=== PATIENT | female | born 1960 | race Caucasian/White ===

== ENCOUNTER 2021-08-31 10:24 | Inpatient (IN) | payer BC ==
[~2021-08-31] VITALS: Ht 167.6 cm; Wt 60.8 kg
--- NOTE | 2021-08-31 10:24 | NUR ---
PT BIB FAMILY C/O DIARRHEA, VOMITING AND BODY ACHES X 5 DAYS. PT IS AAOX3 PARSI SPEAKING ONLY, NOT IN RESPIRATORY DISTRESS, HOOKED TO DIRECTOR OF PUBLIC RELATIONS, KEPT RESTED AND COMFORTABLE. WILL CONTINUE TO MONITOR.
--- NOTE | 2021-08-31 10:41 | NUR ---
PT DAUGHTER [phone]
--- NOTE | 2021-08-31 10:50 | NUR ---
IV LINE ESTABLISHED BLOOD DRAWN AND SENT TO LAB.
--- NOTE | 2021-08-31 11:25 | NUR ---
Alice perry in [place] - 08/31/21 at 1125 by ANGELO CPVOD ANTIGEN SWAB DONE AND SENT TO THE LAB
--- NOTE | 2021-08-31 11:25 | NUR ---
COVID ANTIGEN SWAB DONE AND SENT TO THE LAB
[2021-08-31 12:08] LABS: BASOPHILS % (AUTO) 0.3 % (0.0-2.0); HEMATOCRIT 39 % (33-45); HEMOGLOBIN 13.1 g/dL (11.5-14.8); LYMPHOCYTES # (AUTO) 0.4 K/uL (0.8-4.8); LYMPHOCYTES % (AUTO) 9.4 % (20.0-44.0); MEAN CORPUSCULAR HGB CONC 34 g/dl (31.0-36.0); MEAN CORPUSCULAR VOLUME 78 fL (82-100); MONOCYTES # (AUTO) 0.2 K/uL (0.1-1.30); MONOCYTES % (AUTO) 5.2 % (2.0-12.0); NEUTROPHILS % (AUTO) 85.1 % (43.0-81.0); PLATELET COUNT (AUTO) 173 K/uL (150-450); RED BLOOD CELL COUNT(AUTO) 4.98 MIL/uL (4.0-5.2); WHITE BLOOD COUNT (AUTO) 4.7 K/uL (4.3-11.0)
[2021-08-31] MEDS ORDERED: AZIT250T13 PO (12:18)
[2021-08-31] MEDS ORDERED: HYDR200T81 PO (12:18)
[2021-08-31 12:39] LABS: CREATINE KINASE, TOTAL 265 U/L (26-192)
[2021-08-31 12:48] LABS: ALANINE AMINOTRANSFERASE 23 U/L (12-78); ALKALINE PHOSPHATASE 64 U/L (46-116); ASPARTATE AMINOTRANSFERASE 39 U/L (15-37); BILIRUBIN,TOTAL 0.3 mg/dL (0.2-1.0); CARBON DIOXIDE 25 mmol/L (21-32); CHLORIDE 98 mmol/L (98-107); CREATININE 1.2 mg/dL (0.6-1.3); GLUCOSE 108 mg/dL (74-106); POTASSIUM 3.7 mmol/L (3.5-5.1); SODIUM SERUM 133 mmol/L (136-145); TOTAL PROTEIN, SERUM 6.7 g/dL (6.4-8.2); UREA NITROGEN, BLOOD 17 mg/dL (7-18)
[2021-08-31 12:56] LABS: C-REACTIVE PROTEIN 3.4 mg/dL (0.0-0.9)
[2021-08-31] MEDS ORDERED: DEXAMETHASONE SOD PHOSPHATE 4 MG/ML VIAL ONE (13:22)
[2021-08-31] MEDS ORDERED: DEXAMETHASONE SOD PHOSPHATE 10 MG/ML VIAL IV ONE (13:30)
--- NOTE | 2021-08-31 18:27 | NUR ---
ROOM 118-2
[2021-08-31 18:28] LABS: D-DIMER 1.05 mg/L(FEU (0.17-0.50)
[2021-08-31] MEDS ORDERED: ACETAMINOPHEN 325 MG TABLET PO PRN (18:30)
[2021-08-31] MEDS ORDERED: MAGNESIUM HYDROXIDE 30 ML UDC PO PRN (18:30)
[2021-08-31] MEDS ORDERED: ENOXAPARIN SODIUM 40 MG/0.4 ML DISP.SYRIN SQ SCH (18:30)
[2021-08-31] MEDS ORDERED: ONDANSETRON HCL/PF 4 MG/2 ML VIAL IVP PRN (18:30)
[2021-08-31] MEDS ORDERED: MAG HYDROX/AL HYDROX/SIMETH 30 ML UDC PO PRN (18:30)
[2021-08-31] MEDS ORDERED: Z GUARD REMEDY 4 OZ OINT TP PRN (18:30)
[2021-08-31] MEDS ORDERED: ENOXAPARIN SODIUM 40 MG/0.4 ML DISP.SYRIN SQ ONE (18:41)
--- NOTE | 2021-08-31 20:04 | NUR ---
report given to job
[2021-08-31 20:30] VITALS: BP 102/63
--- NOTE | 2021-08-31 20:33 | NUR ---
PT TRANSPORTED TO [facility] ON [facility] PER [facility] WITHOUT INCIDENT
[2021-08-31] MEDS: AZITHROMYCIN 500 MG in IV D5W 250 ML IV SCH (21:00)
--- NOTE | 2021-08-31 21:00 | NUR ---
RN NOTES RECEIVED CARE OF PATIENT FROM ER, PATIENT TRANSFERRED IN STABLE CONDITIONS. PATIENT IS A/O X4, ABLE TO VERBALIZE NEEDS, NO PAIN OR DISCOMFORT EXPRESSED AT THIS TIME. NO SIGNIFICANT FINDINGS UPON INITIAL NURSING ASSESSMENTS. PATIENT ON 3L O2 VIA NC, O2 SAT IS 95% AT THIS TIME, NO SOB NOTED. WILL ADMINISTER SCHEDULED ANTIBIOTICS. PATIENT PLACED ON APPROPRIATE ISOLATION PRECAUTIONS. ALL SAFETY MEASURES IMPLEMENTED. WILL CONTINUE TO MONITOR.
[2021-08-31] MEDS ORDERED: CEFTRIAXONE 1 G VIAL ONE (21:21)
[2021-08-31] MEDS: CEFTRIAXONE 1 G in IV D5W 50 ML IV SCH (21:27)
[2021-08-31] MEDS ORDERED: AZITHROMYCIN 500 MG VIAL ONE (23:05)
[2021-09-01] VITALS: BP 101/46
[2021-09-01 04:00] VITALS: BP 106/67
--- NOTE | 2021-09-01 07:10 | NUR ---
RN CLOSING NOTES WILL ENDORSE CARE OF PATIENT TO DAY SHIFT NURSE WHILE PATIENT IN STABLE CONDITIONS, ASLEEP BUT WAKES UP TO NAME. PATIENT IS A/O X4, ABLE TO VERBALIZE NEEDS, NO PAIN OR DISCOMFORT EXPRESSED AT THIS TIME. NO SIGNIFICANT FINDINGS UPON ALL NURSING ASSESSMENTS. PATIENT ON 3L O2 VIA NC, O2 SAT IS 96% AT THIS TIME, NO SOB NOTED. PATIENT ON TELE MONITOR, SR NOTED WITH HR OF 83 AT THIS TIME. ALL DUE MEDS GIVEN, ALL NEEDS ATTENDED TO. PATIENT PLACED ON APPROPRIATE ISOLATION PRECAUTIONS. ALL SAFETY MEASURES IMPLEMENTED. WILL ENDORSE TO DAY SHIFT NURSE FOR TRISTA.
--- NOTE | 2021-09-01 07:27 | NUR ---
RN NOTES; PT IN BED IN SUPINE POS. PT A/OX4, SPEAKS LITTLE GREEK BUT CAN MAKE NEEDS KNOWN. PT HAS NO C/O PAIN AT THIS TIME. PT ON NC @3L SATING AT 95%. NO SOB OR DISTRESS NOTED. ALL SAFETY MEASURES RENDERED, BED LOCKED IN LOWEST POS. SIDERAILSX2 WITH CALL LIGHT WITHIN REACH. WILL CONTINUE TO MONITOR.
[2021-09-01 08:00] VITALS: BP 99/64
[2021-09-01 08:15] LABS: BASOPHILS % (AUTO) 0.1 % (0.0-2.0); EOSINOPHILS % (AUTO) 0.1 % (0.0-6.0); HEMATOCRIT 36 % (33-45); HEMOGLOBIN 12.4 g/dL (11.5-14.8); LYMPHOCYTES # (AUTO) 0.6 K/uL (0.8-4.8); MEAN CORPUSCULAR HGB CONC 34 g/dl (31.0-36.0); MEAN CORPUSCULAR VOLUME 78 fL (82-100); MONOCYTES # (AUTO) 0.4 K/uL (0.1-1.30); MONOCYTES % (AUTO) 9.8 % (2.0-12.0); PLATELET COUNT (AUTO) 199 K/uL (150-450); RED BLOOD CELL COUNT(AUTO) 4.65 MIL/uL (4.0-5.2)
[2021-09-01] MEDS: PANTOPRAZOLE 40 MG TABLET.DR PO SCH (08:20)
[2021-09-01] MEDS: DEXAMETHASONE SOD PHOSPHATE 10 MG/ML VIAL IV SCH (08:20)
[2021-09-01 10:35] LABS: ALBUMIN 2.8 g/dL (3.4-5.0); BILIRUBIN,DIRECT 0.1 mg/dL (0.0-0.2); BILIRUBIN,TOTAL 0.2 mg/dL (0.2-1.0); CALCIUM, SERUM 8.4 mg/dL (8.5-10.1); CREATININE 0.9 mg/dL (0.6-1.3); MAGNESIUM 2.2 mg/dL (1.8-2.4); PHOSPHORUS 3.3 mg/dL (2.5-4.9); POTASSIUM 4.1 mmol/L (3.5-5.1); TOTAL PROTEIN, SERUM 6.5 g/dL (6.4-8.2)
[2021-09-01 12:00] VITALS: BP 112/68
[2021-09-01] MEDS ORDERED: REMDESIVIR (CHARGED) 200 MG, *LOADING DOSE 1 EA in IV NS 0.9% 210 ML IV ONE (12:00)
[2021-09-01 16:00] VITALS: BP 111/70
[2021-09-01] MEDS: ENOXAPARIN SODIUM 40 MG/0.4 ML DISP.SYRIN SQ SCH (16:09)
--- NOTE | 2021-09-01 18:35 | NUR ---
RN CLOSING NOTES; PT A/OX4, AMBULATORY. NO C/O PAIN AT THIS TIME. NO SOB OR DISTRESS NOTED. #1 BAG OF REMDESIVIR GIVEN AND TOLERATED WELL. PT IS INDEPENDENT AND WAS ABLE TO CLEAN HER SPACE. ALL SAFETY MEASURES DONE, BED IN LOWEST POS. LOCKED, SIDE RAILSX1 WITH CALL LIGHT WITHIN REACH. WILL ENDORSE TO ASSOCIATE PROFESSOR OF CHEMISTRY RN. NO SIGNIFICANT CHANGES TO PT HEALTH STATUS DURING SHIFT.
--- NOTE | 2021-09-01 19:22 | NUR ---
RN OPENING NOTES RECEIVED CARE OF PATIENT WHILE PATIENT IN BED, SLEEPING BUT WAKES UP TO NAME. PATIENT IS A/O X4, ABLE TO VERBALIZE NEEDS, NO PAIN OR DISCOMFORT EXPRESSED AT THIS TIME. NO SIGNIFICANT FINDINGS UPON INITIAL NURSING ASSESSMENTS. PATIENT ON 3L O2 VIA NC, O2 SAT IS 96% AT THIS TIME, NO SOB NOTED. WILL ADMINISTER SCHEDULED ANTIBIOTICS. PATIENT PLACED ON APPROPRIATE ISOLATION PRECAUTIONS. ALL SAFETY MEASURES IMPLEMENTED. WILL CONTINUE TO MONITOR.
[2021-09-01 20:00] VITALS: BP 94/59
[2021-09-01] MEDS: CEFTRIAXONE 1 G in IV D5W 50 ML IV SCH (21:08)
[2021-09-01] MEDS: AZITHROMYCIN 500 MG in IV D5W 250 ML IV SCH (21:44)
[2021-09-02] VITALS: BP 98/56
[2021-09-02 04:00] VITALS: BP 95/55
--- NOTE | 2021-09-02 07:26 | NUR ---
RN CLOSING NOTES ENDORSED CARE OF PATIENT TO DAY SHIFT NURSE WHILE PATIENT IN STABLE CONDITIONS. PATIENT IS A/O X4, ABLE TO VERBALIZE NEEDS, NO PAIN OR DISCOMFORT EXPRESSED AT THIS TIME. NO SIGNIFICANT FINDINGS UPON ALL NURSING ASSESSMENTS. PATIENT ON 3L O2 VIA NC, O2 SAT IS 94% AT THIS TIME, NO SOB NOTED. PATIENT ON TELE MONITOR, SR NOTED WITH HR OF 71 AT THIS TIME. ALL DUE MEDS GIVEN, ALL NEEDS ATTENDED TO. PATIENT PLACED ON APPROPRIATE ISOLATION PRECAUTIONS. ALL SAFETY MEASURES IMPLEMENTED. ENDORSED TO DAY SHIFT NURSE FOR TRISTA.
--- NOTE | 2021-09-02 07:28 | NUR ---
RN OPENING NOTES; PT IN BED IN SUPINE POS. PT A/OX4, SPEAKS LITTLE WELSH BUT CAN MAKE NEEDS KNOWN. PT HAS NO C/O PAIN AT THIS TIME. PT ON NC @3L SATING AT 96%. NO SOB OR DISTRESS NOTED. IV ACCESS NOTED, PATENT AND FLUSHING WELL. ALL SAFETY MEASURES RENDERED, BED LOCKED IN LOWEST POS. SIDERAILSX2 WITH CALL LIGHT WITHIN REACH. WILL CONTINUE TO MONITOR.
[2021-09-02 08:00] VITALS: BP 112/72
[2021-09-02 08:03] LABS: BASOPHILS % (AUTO) 0.1 % (0.0-2.0); HEMATOCRIT 36 % (33-45); HEMOGLOBIN 12.2 g/dL (11.5-14.8); LYMPHOCYTES # (AUTO) 0.9 K/uL (0.8-4.8); LYMPHOCYTES % (AUTO) 13.9 % (20.0-44.0); MEAN CORPUSCULAR HGB CONC 34 g/dl (31.0-36.0); MEAN CORPUSCULAR VOLUME 79 fL (82-100); MONOCYTES # (AUTO) 0.7 K/uL (0.1-1.30); NEUTROPHILS # (AUTO) 5.1 K/uL (1.8-8.9); PLATELET COUNT (AUTO) 243 K/uL (150-450); RED BLOOD CELL COUNT(AUTO) 4.61 MIL/uL (4.0-5.2); WHITE BLOOD COUNT (AUTO) 6.8 K/uL (4.3-11.0)
[2021-09-02] MEDS: PANTOPRAZOLE 40 MG TABLET.DR PO SCH (08:07)
[2021-09-02] MEDS: DEXAMETHASONE SOD PHOSPHATE 10 MG/ML VIAL IV SCH (08:07)
[2021-09-02 08:57] LABS: ALBUMIN 2.7 g/dL (3.4-5.0); BILIRUBIN,DIRECT 0.1 mg/dL (0.0-0.2); BILIRUBIN,TOTAL 0.2 mg/dL (0.2-1.0); CALCIUM, SERUM 8.4 mg/dL (8.5-10.1); PHOSPHORUS 3.2 mg/dL (2.5-4.9); POTASSIUM 4.2 mmol/L (3.5-5.1); TOTAL PROTEIN, SERUM 6.3 g/dL (6.4-8.2)
[2021-09-02 12:00] VITALS: BP 110/68
[2021-09-02] MEDS: REMDESIVIR (CHARGED) 100 MG in IV NS 0.9% 100 ML IV SCH (12:06)
[2021-09-02] MEDS: ENOXAPARIN SODIUM 40 MG/0.4 ML DISP.SYRIN SQ SCH (16:09)
[2021-09-02 16:41] VITALS: BP 112/71
--- NOTE | 2021-09-02 19:00 | NUR ---
RN CLOSING NOTES; PT A/OX4, AMBULATORY. NO C/O PAIN AT THIS TIME. NO SOB OR DISTRESS NOTED. #2 BAG OF REMDESIVIR GIVEN AND TOLERATED WELL. PT IS INDEPENDENT AND WAS ABLE TO CLEAN HER SPACE. LENI ML #18 INSERTED, FLUSHED, PATENT, WITH NO SIGNS OF INFILTRATION. ALL SAFETY MEASURES DONE, BED IN LOWEST POS. LOCKED, SIDE RAILSX1 WITH CALL LIGHT WITHIN REACH. WILL ENDORSE TO FAN MAIL EDITOR RN. NO SIGNIFICANT CHANGES TO PT HEALTH STATUS DURING SHIFT.
[2021-09-02] MEDS: CEFTRIAXONE 1 G in IV D5W 50 ML IV SCH (20:36)
[2021-09-02] MEDS: AZITHROMYCIN 250 MG TABLET PO SCH (20:37)
[2021-09-02 23:20] VITALS: BP 120/78
[2021-09-03 04:00] VITALS: BP 114/69
--- NOTE | 2021-09-03 07:10 | NUR ---
RN CLOSING NOTES, PATIENT IN BED, A/O X4, SLEEPING AT THIS TIME, AROUSES TO VERBAL STIMULI, ON 3L SIMPLE MASK WITH NO SIGNS OF DISTRESS OR LABORED BREATHING, NO SIGNIFICANT CHANGE IN CONDITION DURING THE NIGHT, CALL LIGHT WITHIN REACH, ALL SAFETY PRECAUTIONS IN PLACED, ISOLATION PRECAUTIONS IN PLACE, ENDORSED TO HEATHER JACOBSON FOR CONTINUATION OF CARE.
[2021-09-03] MEDS: PANTOPRAZOLE 40 MG TABLET.DR PO SCH (07:33)
--- NOTE | 2021-09-03 07:45 | NUR ---
RN OPENING NOTES PT IN BED IN SUPINE POS. PT A/OX4, SPEAKS LITTLE [place]OV[place] BUT CAN MAKE NEEDS KNOWN. PT HAS NO C/O PAIN AT THIS TIME. PT ON NC @3L SATING AT 96%. NO SOB OR DISTRESS NOTED. IV ACCESS NOTED, PATENT AND FLUSHING WELL. ALL SAFETY MEASURES RENDERED, BED LOCKED IN LOWEST POS. SIDE RAILS UP X2 WITH CALL LIGHT WITHIN REACH. WILL CONTINUE TO MONITOR THROUGHOUT SHIFT.
[2021-09-03 08:39] LABS: BASOPHILS % (AUTO) 0.1 % (0.0-2.0); HEMATOCRIT 34 % (33-45); HEMOGLOBIN 11.6 g/dL (11.5-14.8); LYMPHOCYTES # (AUTO) 0.9 K/uL (0.8-4.8); LYMPHOCYTES % (AUTO) 14.9 % (20.0-44.0); MEAN CORPUSCULAR HGB CONC 34 g/dl (31.0-36.0); MEAN CORPUSCULAR VOLUME 79 fL (82-100); MONOCYTES # (AUTO) 0.6 K/uL (0.1-1.30); MONOCYTES % (AUTO) 9.5 % (2.0-12.0); NEUTROPHILS # (AUTO) 4.8 K/uL (1.8-8.9); NEUTROPHILS % (AUTO) 75.5 % (43.0-81.0); PLATELET COUNT (AUTO) 263 K/uL (150-450); RED BLOOD CELL COUNT(AUTO) 4.28 MIL/uL (4.0-5.2); WHITE BLOOD COUNT (AUTO) 6.3 K/uL (4.3-11.0)
[2021-09-03] MEDS: DEXAMETHASONE SOD PHOSPHATE 10 MG/ML VIAL IV SCH (08:42)
[2021-09-03 10:29] LABS: ALBUMIN 2.6 g/dL (3.4-5.0); BILIRUBIN,DIRECT 0.1 mg/dL (0.0-0.2); BILIRUBIN,TOTAL 0.2 mg/dL (0.2-1.0); CALCIUM, SERUM 8.4 mg/dL (8.5-10.1); CREATININE 0.9 mg/dL (0.6-1.3); POTASSIUM 3.7 mmol/L (3.5-5.1); TOTAL PROTEIN, SERUM 5.8 g/dL (6.4-8.2)
[2021-09-03] MEDS: REMDESIVIR (CHARGED) 100 MG in IV NS 0.9% 100 ML IV SCH (11:20)
[2021-09-03 12:00] VITALS: BP 103/58
[2021-09-03] MEDS: ENOXAPARIN SODIUM 40 MG/0.4 ML DISP.SYRIN SQ SCH (17:07)
--- NOTE | 2021-09-03 18:27 | NUR ---
RN CLOSING NOTES PATIENT IN BED, A/O X4, RESTING AT THIS TIME, AROUSES TO VERBAL STIMULI, ON 3L NC SATING AT 97% WITH NO SIGNS OF DISTRESS OR LABORED BREATHING, NO SIGNIFICANT CHANGE IN CONDITION DURING THE DAY. ALL SAFETY MEASURES IN PLACE, BED IN LOWEST LOCKED POSITION, SIDE RAILS UP X3, CALL LIGHT WITHIN REACH. WILL ENDORSE TO BUSINESS APPLICATIONS ANALYST NURSE FOR TRISTA.
[2021-09-03 20:00] VITALS: BP 114/73
[2021-09-03] MEDS ORDERED: POLYETHYLENE GLYCOL 3350 17 GM POWD.PACK PO ONE (20:00)
[2021-09-03] MEDS: DOCUSATE SODIUM 100 MG CAPSULE PO SCH (20:02)
[2021-09-03] MEDS: AZITHROMYCIN 250 MG TABLET PO SCH (20:03)
[2021-09-03] MEDS: ZOLPIDEM TARTRATE 5 MG TABLET PO PRN (20:33)
--- NOTE | 2021-09-03 20:33 | NUR ---
RN NOTES, PATIENT A/O X4 ABLE TO COMMUNICATE, NO SOB/ACUTE DISTRESS NOTED, ON 4LPM VIA NC, REQUESTED AMBIEN FOR INABILITY TO SLEEP, REPORTED MINIMUN SLEEP LAST NIGHT, WILL CONTINUE TO MONITOR CLOSELY.
[2021-09-04 04:00] VITALS: BP 118/69
--- NOTE | 2021-09-04 07:20 | NUR ---
RN NOTES, PATIENT IN BED, SLEEPING AT THIS TIME, AROUSES TO VERBAL STIMULI, ON 3L SIMPLE MASK WITH NO SIGNS OF DISTRESS OR LABORED BREATHING, NO SIGNIFICANT CHANGE IN CONDITION DURING THE NIGHT, ENDORSED TO JEROME RN FOR CONTINUATION OF CARE.
[2021-09-04 07:40] LABS: BASOPHILS % (AUTO) 0.1 % (0.0-2.0); HEMATOCRIT 34 % (33-45); HEMOGLOBIN 11.4 g/dL (11.5-14.8); LYMPHOCYTES # (AUTO) 1.3 K/uL (0.8-4.8); LYMPHOCYTES % (AUTO) 19.3 % (20.0-44.0); MEAN CORPUSCULAR HGB CONC 34 g/dl (31.0-36.0); MEAN CORPUSCULAR VOLUME 79 fL (82-100); MONOCYTES # (AUTO) 0.5 K/uL (0.1-1.30); MONOCYTES % (AUTO) 7.2 % (2.0-12.0); NEUTROPHILS % (AUTO) 73.4 % (43.0-81.0); PLATELET COUNT (AUTO) 305 K/uL (150-450); RED BLOOD CELL COUNT(AUTO) 4.26 MIL/uL (4.0-5.2); WHITE BLOOD COUNT (AUTO) 6.7 K/uL (4.3-11.0)
[2021-09-04] MEDS: DEXAMETHASONE SOD PHOSPHATE 10 MG/ML VIAL IV SCH (08:07)
[2021-09-04] MEDS: PANTOPRAZOLE 40 MG TABLET.DR PO SCH (08:07)
[2021-09-04] MEDS: DOCUSATE SODIUM 100 MG CAPSULE PO SCH (08:10)
[2021-09-04 08:17] LABS: ALBUMIN 2.7 g/dL (3.4-5.0); BILIRUBIN,DIRECT 0.1 mg/dL (0.0-0.2); BILIRUBIN,TOTAL 0.3 mg/dL (0.2-1.0); CALCIUM, SERUM 8.5 mg/dL (8.5-10.1); CREATININE 0.9 mg/dL (0.6-1.3); POTASSIUM 3.6 mmol/L (3.5-5.1); TOTAL PROTEIN, SERUM 5.7 g/dL (6.4-8.2)
[2021-09-04 08:57] VITALS: BP 116/76
--- NOTE | 2021-09-04 08:57 | NUR ---
received awake alert no acute distress.
[2021-09-04] MEDS: REMDESIVIR (CHARGED) 100 MG in IV NS 0.9% 100 ML IV SCH (11:41)
[2021-09-04] MEDS ORDERED: MAGNESIUM HYDROXIDE 30 ML UDC PO PRN (12:30)
[2021-09-04 13:06] VITALS: BP 120/76
[2021-09-04] MEDS: ENOXAPARIN SODIUM 40 MG/0.4 ML DISP.SYRIN SQ SCH (16:13)
[2021-09-04 17:05] VITALS: BP 99/76
--- NOTE | 2021-09-04 18:12 | NUR ---
PATIENT PLACED ON HUMDIFIER R/T DRY NOSE FROM OXYGEN,NO ACUTE DISTRESS,STILL CONSTIPATED WILL ENDORSED TO NIGHT RN TO GIVE PRN LAXATIVE TONITE ORDERED.
--- NOTE | 2021-09-04 18:35 | NUR ---
PATIENT ROOM AIR SAT AT REST 86%,DR. LAMBERT NOTIFIED,CM TRIGGERED FOR POSSIBLE HOME O2 ON DISCHARGE.
--- NOTE | 2021-09-04 19:44 | NUR ---
RN OPENING NOTES RECEIVED PATIENT IN BED AWAKE, ALERT, ORIENTED X4, VERBALLY RESPONSIVE. NO SOB NOTED, BREATHING EVEN AND UNLABORED. ON 4L VIA N/C AND PT TOLERATED WELL. IV ACCES ON LENI #18G. INTACT AND PATENT. NO S/S OF INFILTRATIONS. NO C/O PAIN OR DISCOMFORT. NO ACUTE DISTRESS. AMBULATORY TO THE RESTROOM. ALL SAFETY MEASURES IN PLACE, BED IN LOW POSITION AND LOCKED. SIDE RAILS UP X2. PLACE CALL LIGHT WITHIN REACH. WILL CONTINUE TO MONITOR.
[2021-09-04 20:00] VITALS: BP 110/72
[2021-09-04] MEDS: AZITHROMYCIN 250 MG TABLET PO SCH (21:10)
[2021-09-05 04:00] VITALS: BP 107/63
--- NOTE | 2021-09-05 06:42 | NUR ---
RN CLOSING NOTES: PATIENT IN BED SLEEPING BUT EASILY AROUSABLE. , ALERT, ORIENTED X4, VERBALLY RESPONSIVE. NO SOB, BREATHING EVEN AND UNLABORED. ON 4L VIA N/C, O2 SAT 97%. AND PT TOLERATED WELL. IV ACCESS ON LENI MIDLINE #18G. INTACT AND PATENT. NO S/S OF INFILTRATIONS. NO C/O PAIN OR DISCOMFORT. NO ACUTE DISTRESS. DUE MEDS GIVEN ORDERED. AMBULATORY TO THE RESTROOM, ALL SAFETY MEASURES IN PLACE, BED IN LOW POSITION AND LOCKED. SIDE RAILS UP X2. PLACE CALL LIGHT WITHIN REACH. WILL ENDORSE TO MORNING SHIFT NURSE.
[2021-09-05 07:19] LABS: BASOPHILS % (AUTO) 0.1 % (0.0-2.0); EOSINOPHILS % (AUTO) 0.1 % (0.0-6.0); HEMATOCRIT 34 % (33-45); HEMOGLOBIN 11.6 g/dL (11.5-14.8); LYMPHOCYTES # (AUTO) 1.8 K/uL (0.8-4.8); MEAN CORPUSCULAR HGB CONC 34 g/dl (31.0-36.0); MEAN CORPUSCULAR VOLUME 78 fL (82-100); MONOCYTES # (AUTO) 0.5 K/uL (0.1-1.30); MONOCYTES % (AUTO) 6.7 % (2.0-12.0); NEUTROPHILS # (AUTO) 5.4 K/uL (1.8-8.9); NEUTROPHILS % (AUTO) 70.1 % (43.0-81.0); PLATELET COUNT (AUTO) 369 K/uL (150-450); RED BLOOD CELL COUNT(AUTO) 4.36 MIL/uL (4.0-5.2); WHITE BLOOD COUNT (AUTO) 7.7 K/uL (4.3-11.0)
--- NOTE | 2021-09-05 07:40 | NUR ---
RN OPENING NOTES RELIEVED PATIENT IN BED SLEEPING BUT RESPONSE TO NAME A/O X3, NO SOB, BREATHING EVEN AND UNLABORED. ON 4L VIA N/C, O2 SAT 97%. IV ACCESS ON LENI MIDLINE #18G. INTACT AND PATENT. NO C/O PAIN OR DISCOMFORT. ALL SAFETY MEASURES IN PLACE, BED IN LOW POSITION AND LOCKED. SIDE RAILS UP X2. PLACE CALL LIGHT WITHIN REACH.
[2021-09-05] MEDS: PANTOPRAZOLE 40 MG TABLET.DR PO SCH (08:11)
[2021-09-05] MEDS: DOCUSATE SODIUM 250 MG CAPSULE PO SCH (08:11)
[2021-09-05] MEDS: DEXAMETHASONE SOD PHOSPHATE 10 MG/ML VIAL IV SCH (08:11)
[2021-09-05 08:16] LABS: ALBUMIN 2.6 g/dL (3.4-5.0); BILIRUBIN,DIRECT 0.1 mg/dL (0.0-0.2); BILIRUBIN,TOTAL 0.4 mg/dL (0.2-1.0); CALCIUM, SERUM 8.8 mg/dL (8.5-10.1); CREATININE 0.8 mg/dL (0.6-1.3); POTASSIUM 3.9 mmol/L (3.5-5.1); TOTAL PROTEIN, SERUM 5.8 g/dL (6.4-8.2)
[2021-09-05] MEDS: REMDESIVIR (CHARGED) 100 MG in IV NS 0.9% 100 ML IV SCH (12:06)
[2021-09-05 16:00] VITALS: BP 107/66
[2021-09-05] MEDS: ENOXAPARIN SODIUM 40 MG/0.4 ML DISP.SYRIN SQ SCH (16:48)
--- NOTE | 2021-09-05 19:10 | NUR ---
RN CLOSING NOTES PATIENT IN BED SLEEPING BUT RESPONSE TO NAME A/O X3, NO SOB, BREATHING EVEN AND UNLABORED. ON ROOM AIR . IV ACCESS ON LENI MIDLINE #18G. INTACT AND PATENT. NO C/O PAIN OR DISCOMFORT. ALL SCHEDULED MEDICATIONS GIVEN. ALL SAFETY MEASURES IN PLACE, BED IN LOW POSITION AND LOCKED. SIDE RAILS UP X2. PLACE CALL LIGHT WITHIN REACH.
--- NOTE | 2021-09-05 19:15 | NUR ---
RN OPENING NOTES PT AWAKE IN BED, ALERT, ABLE TO VERBALIZE ALL NEEDS. SHE DENIES ANY PAIN AT THIS TIME. PT PREFERS TO BE ON ROOM AIR AND DANIEL WELL. DENIES SOB. RESPIRATIONS EVEN/UNLABORED. IV SITE: LENI MIDLINE INTACT/PATENT/FLUSHES WELL. PT IN NO ACUTE DISTRESS. SAFETY MEASURES IN PLACE BED IN LOWEST LOCKED POSITION, S/R UPX2, CALL LIGHT WITHIN REACH. WILL CONT TO MONITOR.
[2021-09-05 20:00] VITALS: BP 108/67
[2021-09-05] MEDS: ZOLPIDEM TARTRATE 5 MG TABLET PO PRN (21:18)
--- NOTE | 2021-09-06 06:54 | NUR ---
RN CLOSING NOTES PT RESTING IN BED, EASILY AWAKENS TO STIMULI. SHE DENIES ANY PAIN OR DISCOMFORT AT THIS TIME. PT ON ROOM AIR AND DANIEL WELL, O2 SAT 94%. SHE DENIES ANY SOB. PT SLEPT WELL DURING THE NIGHT. ALL NEEDS ATTENDED TO. SAFETY MEASURES MAINTAINED.
[2021-09-06 06:55] LABS: BASOPHILS % (AUTO) 0.1 % (0.0-2.0); EOSINOPHILS % (AUTO) 0.3 % (0.0-6.0); HEMATOCRIT 35 % (33-45); HEMOGLOBIN 11.9 g/dL (11.5-14.8); LYMPHOCYTES # (AUTO) 1.9 K/uL (0.8-4.8); LYMPHOCYTES % (AUTO) 15.5 % (20.0-44.0); MEAN CORPUSCULAR HGB CONC 34 g/dl (31.0-36.0); MEAN CORPUSCULAR VOLUME 78 fL (82-100); MONOCYTES # (AUTO) 0.7 K/uL (0.1-1.30); MONOCYTES % (AUTO) 5.9 % (2.0-12.0); NEUTROPHILS # (AUTO) 9.8 K/uL (1.8-8.9); NEUTROPHILS % (AUTO) 78.2 % (43.0-81.0); PLATELET COUNT (AUTO) 435 K/uL (150-450); RED BLOOD CELL COUNT(AUTO) 4.41 MIL/uL (4.0-5.2); WHITE BLOOD COUNT (AUTO) 12.6 K/uL (4.3-11.0)
[2021-09-06] MEDS: PANTOPRAZOLE 40 MG TABLET.DR PO SCH ×2 (07:30→08:05)
[2021-09-06 07:32] LABS: CALCIUM, SERUM 8.6 mg/dL (8.5-10.1); CREATININE 0.9 mg/dL (0.6-1.3); POTASSIUM 3.8 mmol/L (3.5-5.1)
[2021-09-06] MEDS: DOCUSATE SODIUM 250 MG CAPSULE PO SCH ×2 (08:05→08:11)
[2021-09-06] MEDS: DEXAMETHASONE SOD PHOSPHATE 10 MG/ML VIAL IV SCH ×2 (08:05→08:40)
[2021-09-06 10:00] VITALS: BP 83/60
--- NOTE | 2021-09-06 10:39 | NUR ---
RN NOTE PATIENT WISHES TO LEAVE THE FACILITY DIANE. DR CONTACTED ABOUT THE MANNER. EXPLAINED TO PATIENT THE IMPORTANCE OF STAYING UNTIL SEEN BY DR TODAY. PATIENT STILL WISHES TO LEAVE. PATIENT LEFT FACILITY AMA, ACCEPTED DISCHARGED PAPERS AND INSTRUCTIONS. AMA FORM SIGNED, PATIENT A&OX4, UNDERSTANDS THE POSSIBLE COMPLICATIONS ASSOCIATED WITH LEAVING AMA. PICKED UP PATIENT. PATIENT ON ROOM AIR SATURATING 95% BEFORE LEAVING.
[2021-09-06 22:05] LABS: EOSINOPHILS % (MANUAL) 2 % (0-4); LYMPHOCYTES % (MANUAL) 14 % (16-48); MONOCYTES % (MANUAL) 5 % (0-11.0); NEUTROPHILS % (MANUAL) 79 (42-76)
== END 2021-09-06 10:34 | disposition left against medical advice (07) | DRG 177 ==
LOC: ER 10:34 → TRANSITION 15:52 → TELE1 18:31 → MEDSG1 09-01 10:36
PROVIDERS: ADMIT Student in an Organized Health Care Education/Training Program
PROC: XW033E5 Introduction of Remdesivir Anti-infective into Peripheral Vein, Percutaneous Approach, New Technology Group 5 (ICD-10-PCS; principal; 2021-09-01)
PROC: 05H633Z Insertion of Infusion Device into Left Subclavian Vein, Percutaneous Approach (ICD-10-PCS; 2021-09-02)
PROC: B547ZZA Ultrasonography of Left Subclavian Vein, Guidance (ICD-10-PCS; 2021-09-02)
DX: U07.1 COVID-19 (principal); J12.82 Pneumonia due to coronavirus disease 2019; J96.01 Acute respiratory failure with hypoxia; E87.1 Hypo-osmolality and hyponatremia; E44.0 Moderate protein-calorie malnutrition; E03.9 Hypothyroidism, unspecified; Z68.21 Body mass index [BMI] 21.0-21.9, adult; R74.01 Elevation of levels of liver transaminase levels; E86.0 Dehydration
CPT/HCPCS: 36410; 36415; 71045-TC; 80048-TC; 80053-TC; 80076-TC; 82550-TC; 82553; 83605-TC; 83615-TC; 83735-TC; 83880; 84100-TC; 84484-TC; 85025-TC; 85378-TC; 85610-TC; 85730-TC; 86140-TC; 87040-TC; 87081-TC; A4216; C9803; G0378; J0456; J0696; J1100; J1650; J7030; J7050; J7060